=== PATIENT | male | born 1980 | race Caucasian/White ===

== ENCOUNTER 2021-06-11 02:05 | Emergency (ER) | payer MEDICARE, OTHER ==
[~2021-06-11 02:05] MED LIST: BACTRIM DS TAB1 EACH PO; BENADRYL 50MG C50 MG PO; IBUPROFEN600 MG PO; LODINE CAP 300300 MG PO; ROBITUSSIN100 MG/51 PO; ZYRTEC10 M3 PO
== END 2021-06-11 02:50 | disposition home or self-care (01) ==
LOC: ER1 02:05
DX: J06.9 Acute upper respiratory infection, unspecified (principal); Z20.822 Contact with and (suspected) exposure to COVID-19
CPT/HCPCS: 99284; U0003

== ENCOUNTER → 2022-02-23 | Outpatient (CLI) | payer MEDICARE, OTHER | LOC: KOH-I 08:52 | DX: M25.511 Pain in right shoulder (principal) | CPT/HCPCS: 73221 ==